=== PATIENT | female | born 1970 | race Caucasian/White ===

== ENCOUNTER → 2024-04-20 12:41 | Day surgery (SDC) | payer BC, SELFPAY ==
--- NOTE | ~2024-04-20 | US_ITS ---
PROCEDURE: Ultrasound-guided foam sclerotherapy right lower extremity varicose veins History: varicose veins Indications: Symptomatic varicose veins bilateral lower extremities. Symptoms include pain TECHNIQUE/FINDINGS Preliminary ultrasound demonstrates dilated AASV and varicose veins below the knee in concordance with preprocedure ultrasound. The right leg was sterilely prepped and draped. The AASV was accessed with a 23-gauge butterfly needle under direct ultrasound guidance with permanent recordings. A below the knee varicosity was accessed with a 23-gauge butterfly needle under direct ultrasound guidance with permanent recordings. Both sites were then treated with foam sclerotherapy using 1% Sotradecol in a 1:3 mixture with room air under ultrasound guidance. The access needles were removed. Ultrasound demonstrates successful sclerotherapy of the treated veins. Dressings were applied. A compression stocking was placed. Patient tolerated procedure well without immediate consultations. US/US Vein Inj Sclerosant Multi Impression: Ultrasound guided foam sclerotherapy of right AASV and right lower extremity varicose veins. Electronically signed by: David Shankar MD 04/24/2024 05:23 PM [facility]
--- NOTE | ~2024-04-20 | US_ITS ---
PROCEDURE: Ultrasound-guided foam sclerotherapy right lower extremity varicose veins History: varicose veins Indications: Symptomatic varicose veins bilateral lower extremities. Symptoms include pain TECHNIQUE/FINDINGS Preliminary ultrasound demonstrates dilated AASV and varicose veins below the knee in concordance with preprocedure ultrasound. The right leg was sterilely prepped and draped. The AASV was accessed with a 23-gauge butterfly needle under direct ultrasound guidance with permanent recordings. A below the knee varicosity was accessed with a 23-gauge butterfly needle under direct ultrasound guidance with permanent recordings. Both sites were then treated with foam sclerotherapy using 1% Sotradecol in a 1:3 mixture with room air under ultrasound guidance. The access needles were removed. Ultrasound demonstrates successful sclerotherapy of the treated veins. Dressings were applied. A compression stocking was placed. Patient tolerated procedure well without immediate consultations. US/US guide needle placement Impression: Ultrasound guided foam sclerotherapy of right AASV and right lower extremity varicose veins. Electronically signed by: David Shankar MD 04/24/2024 05:23 PM [facility]
== END ==
LOC: HO.US 12:42
PROVIDERS: PCP Internal Medicine; Visit Provider Student in an Organized Health Care Education/Training Program
DX: I83.811 Varicose veins of right lower extremity with pain (principal); I87.2 Venous insufficiency (chronic) (peripheral)
CPT/HCPCS: 36471; 36482; 76942

== ENCOUNTER → 2024-04-20 12:45 | Outpatient (BNV) | payer BC, SELFPAY | PROVIDERS: PCP Internal Medicine; Visit Provider Student in an Organized Health Care Education/Training Program | DX: I83.811 Varicose veins of right lower extremity with pain (principal) | CPT/HCPCS: 36482 ==

== ENCOUNTER 2024-04-27 12:56 | Outpatient (REF) | payer BC, SELFPAY ==
--- NOTE | ~2024-04-27 | US_ITS ---
EXAMINATION: US TRIPLEX LOWER EXTREMITY, RIGHT CLINICAL INFORMATION: Status post sclerotherapy right calf. Concerning deep venous thrombosis. COMPARISON: None available. TECHNIQUE: Color-flow triplex imaging with spectral analysis and compression Doppler were performed on the right lower extremity. FINDINGS: Respiratory variation, normal compression and augmented flow are noted throughout the right lower extremity. The visualized common femoral vein, superficial femoral vein, profunda femoral vein, popliteal vein and midcalf peroneal and posterior tibial venous segments show no evidence of deep venous thrombosis. There is partial compressibility phasic flow and augmentation involving the anterior accessory saphenous vein from the proximal thigh to below the knee. There is no Mckoy's cyst. US/US venous duplex LE RT IMPRESSION: No acute deep venous thrombosis involving the right lower extremity. Occluded/thrombosed anterior accessory saphenous vein from the proximal thigh to below the knee. Electronically signed by: Kamlesh Krause MD 05/30/2024 08:52 AM [facility]
== END 2024-04-27 12:57 | disposition home or self-care (01) ==
LOC: HO.US 12:56
PROVIDERS: PCP Internal Medicine; Visit Provider Student in an Organized Health Care Education/Training Program
DX: Z13.89 Encounter for screening for other disorder (principal)
CPT/HCPCS: 93971

== ENCOUNTER → 2024-04-27 13:42 | Outpatient (BNV) | payer BC, SELFPAY | PROVIDERS: PCP Internal Medicine; Visit Provider Radiology Diagnostic Radiology | DX: I82.811 Embolism and thrombosis of superficial veins of right lower extremity (principal) | CPT/HCPCS: 93971 ==

== ENCOUNTER → 2024-05-02 12:55 | Day surgery (SDC) | payer BC, SELFPAY ==
--- NOTE | ~2024-05-02 | US_ITS ---
Procedure: Endovascular ablation of the left greater saphenous vein and left smaller saphenous vein with VenaSeal HISTORY: Varicose veins INDICATIONS: Symptomatically varicose veins left lower extremity. Symptoms include pain, aching, PROCEDURE/FINDINGS: Informed consent was obtained following a discussion of the risks and benefits of the procedure with the patient. The patient was placed supine on the ultrasound procedure table. Preliminary ultrasound demonstrates dilated refluxing left greater saphenous vein. A site was marked on the left medial leg . The left leg was sterilely prepped and draped. Following the administration of 1% lidocaine for local anesthesia, the greater saphenous vein was accessed with a 21-gauge micropuncture needle under direct ultrasound guidance. The needle was exchanged for the transitional dilator over a 0.018 guidewire. A 0.035 guidewire was then advanced to the saphenofemoral junction. The VenaSeal sheath was then inserted over the wire and positioned 10 cm from the saphenofemoral junction. VenaSeal glue was then delivered along the length of the greater saphenous vein while retracting the catheter with compression at the saphenofemoral junction to prevent glue from traveling forward. The delivery device was removed and hemostasis was achieved with manual compression. Postprocedure ultrasound demonstrates successful occlusion of the treated veins with widely patent and compressible saphenofemoral junction. The patient was then repositioned to be prone. Preliminary ultrasound demonstrates dilated refluxing left smaller saphenous vein. A site was marked on the left posterior leg . The left leg was sterilely prepped and draped. Following the administration of 1% lidocaine for local anesthesia, the smaller saphenous vein was accessed with a 21-gauge micropuncture needle under direct ultrasound guidance. The needle was exchanged for the transitional dilator over a 0.018 guidewire. A 0.035 guidewire was then advanced to the saphenopopliteal junction. The VenaSeal sheath was then inserted over the wire and positioned 10 cm from the saphenopopliteal junction. VenaSeal glue was then delivered along the length of the smaller saphenous vein while retracting the catheter with compression at the sapheno popliteal junction to prevent glue from traveling forward. The delivery device was removed and hemostasis was achieved with manual compression. Postprocedure ultrasound demonstrates successful occlusion of the treated veins with widely patent and compressible saphenopopliteal junction. Patient tolerated the procedure well without immediate complication. US/US venaseal vein closure subse IMPRESSION: Successful VenaSeal ablation of the left greater and smaller saphenous veins. Follow-up ultrasound in 5-10 days Electronically signed by: David Shankar MD 05/22/2024 03:24 PM [facility]
--- NOTE | ~2024-05-02 | US_ITS ---
Procedure: Endovascular ablation of the left greater saphenous vein and left smaller saphenous vein with VenaSeal HISTORY: Varicose veins INDICATIONS: Symptomatically varicose veins left lower extremity. Symptoms include pain, aching, PROCEDURE/FINDINGS: Informed consent was obtained following a discussion of the risks and benefits of the procedure with the patient. The patient was placed supine on the ultrasound procedure table. Preliminary ultrasound demonstrates dilated refluxing left greater saphenous vein. A site was marked on the left medial leg . The left leg was sterilely prepped and draped. Following the administration of 1% lidocaine for local anesthesia, the greater saphenous vein was accessed with a 21-gauge micropuncture needle under direct ultrasound guidance. The needle was exchanged for the transitional dilator over a 0.018 guidewire. A 0.035 guidewire was then advanced to the saphenofemoral junction. The VenaSeal sheath was then inserted over the wire and positioned 10 cm from the saphenofemoral junction. VenaSeal glue was then delivered along the length of the greater saphenous vein while retracting the catheter with compression at the saphenofemoral junction to prevent glue from traveling forward. The delivery device was removed and hemostasis was achieved with manual compression. Postprocedure ultrasound demonstrates successful occlusion of the treated veins with widely patent and compressible saphenofemoral junction. The patient was then repositioned to be prone. Preliminary ultrasound demonstrates dilated refluxing left smaller saphenous vein. A site was marked on the left posterior leg . The left leg was sterilely prepped and draped. Following the administration of 1% lidocaine for local anesthesia, the smaller saphenous vein was accessed with a 21-gauge micropuncture needle under direct ultrasound guidance. The needle was exchanged for the transitional dilator over a 0.018 guidewire. A 0.035 guidewire was then advanced to the saphenopopliteal junction. The VenaSeal sheath was then inserted over the wire and positioned 10 cm from the saphenopopliteal junction. VenaSeal glue was then delivered along the length of the smaller saphenous vein while retracting the catheter with compression at the sapheno popliteal junction to prevent glue from traveling forward. The delivery device was removed and hemostasis was achieved with manual compression. Postprocedure ultrasound demonstrates successful occlusion of the treated veins with widely patent and compressible saphenopopliteal junction. Patient tolerated the procedure well without immediate complication. US/US venaseal vein closure IMPRESSION: Successful VenaSeal ablation of the left greater and smaller saphenous veins. Follow-up ultrasound in 5-10 days Electronically signed by: David Shankar MD 05/22/2024 03:24 PM [facility]
[2024-05-02] MEDS: Lidocaine HCl 1 % MPF 5 ML VIAL SUBCUT (15:03)
== END ==
LOC: HO.US 12:56
PROVIDERS: PCP Internal Medicine; Visit Provider Student in an Organized Health Care Education/Training Program
DX: I83.812 Varicose veins of left lower extremity with pain (principal)
CPT/HCPCS: 36482; 36483; C1894; J2003

== ENCOUNTER → 2024-05-02 13:00 | Outpatient (BNV) | payer BC, SELFPAY | PROVIDERS: PCP Internal Medicine; Visit Provider Student in an Organized Health Care Education/Training Program | DX: I83.892 Varicose veins of left lower extremity with other complications (principal) | CPT/HCPCS: 36482; 36483 ==

== ENCOUNTER 2024-05-09 16:53 | Outpatient (REF) | payer BC, SELFPAY ==
--- NOTE | ~2024-05-09 | US_ITS ---
CLINICAL HISTORY: s p left leg venoseal, r o dvt Venous duplex ultrasound left lower extremity Comparison: US/MO - US VENASEAL VEIN CLOSURE - 05/02/24 13:13 EST US - US VENOUS DUPLEX LE RT - 04/27/24 14:01 EST Findings: The visualized deep veins are fully compressible with normal Doppler color flow and spectral tracings. No popliteal cyst. Occlusion of the superficial veins in the greater saphenous vein and small saphenous vein. IMPRESSION: Negative for left lower extremity deep vein thrombosis. Posttreatment occlusion of the superficial veins. This document has been electronically signed by: Glenn Miranda MD on 05/09/2024 18:10:29
== END 2024-05-09 16:54 | disposition home or self-care (01) ==
LOC: HO.US 16:53
PROVIDERS: PCP Internal Medicine; Visit Provider Student in an Organized Health Care Education/Training Program
DX: I87.2 Venous insufficiency (chronic) (peripheral) (principal)
CPT/HCPCS: 93971

== ENCOUNTER → 2024-05-09 17:06 | Outpatient (BNV) | payer BC, SELFPAY | PROVIDERS: PCP Internal Medicine; Visit Provider Nuclear Medicine | DX: I82.812 Embolism and thrombosis of superficial veins of left lower extremity (principal) | CPT/HCPCS: 93971 ==